=== PATIENT | female | born 1945 ===

== ENCOUNTER → 2020-08-22 15:00 | Outpatient (CLI) | payer OTHER | END | disposition home or self-care (01) | LOC: EDBD 15:00 → PPH VACUNA 15:00 | PROVIDERS: ATTEND Emergency Medicine Pediatric Emergency Medicine | DX: Z23 Encounter for immunization (principal) ==

== ENCOUNTER 2020-09-12 01:41 | Outpatient (CLI) | payer OTHER | END 2020-09-12 14:14 | disposition home or self-care (01) | LOC: PPH VACUNA 01:41 → EDBD 01:41 → PPH VACUNA 14:14 | PROVIDERS: ATTEND Emergency Medicine Pediatric Emergency Medicine | DX: Z23 Encounter for immunization (principal) ==